=== PATIENT | female | born 1985 | race Caucasian/White ===

== ENCOUNTER → 2016-09-25 | Day surgery (SDC) | payer OTHER ==
[2016-09-16 11:22] VITALS: Ht 154.9 cm; Wt 57.7 kg
--- NOTE | 2016-09-24 11:39 | History and Physical: Surg Cnt ---
History & Physical Date Sep 24, 2016. Chief Complaint sinus infections History of Present Illness The patient is a 31 year old female with complaints of persistent sinusitis x 3 months, previous surgery in [place] Past Medical/Surgical History Medical Problems: (1) Uterine contractins (2) Uterine contractions Additional History Hepatic Disease: No Endocrine Disorder: No Kidney Disease: No Hypertension: No Heart Disease: No Bleeding Tendencies: No Infectious Diseases: No Allergies Coded Allergies: Vancomycin (Verified Allergy, Intermediate, RED FACE, ITCHY, SWELLING, 01/23) Penicillins (Verified Allergy, Mild, HIVES, 09/16/16) Sulfa Antibiotics (Verified Allergy, Mild, "SULFA DRUGS": HIVES, 09/16/16) Home Medications Scheduled Cholecalciferol (Vitamin D3), 1 TAB PO QAM Etonogestrel/Ethinyl Estradiol (Nuvaring), 1 EA VAGRING MONTHLY Interferon Beta-1B (Betaseron), 1 DOSE IM Q2D Levothyroxine Sodium (Synthroid), 88 MCG PO QAM Multivit/Min/Iron/Fol Ac/Pren ( Vitamin), 1 TABLET PO QAM Zinc Gluconate (Zinc), 50 MG PO QAM Physical Examination Skin: warm/dry, no rash Eyes: normal inspection, EOMI, sclerae normal ENT: normal ENT inspection, pharynx normal Head: normocephalic, atraumatic Neck: supple, no adenopathy, trachea midline Respiratory/Chest: lungs clear, normal breath sounds, no respiratory distress Cardiovascular: regular rate, rhythm, no edema, no murmur Abdomen / GI: normal bowel sounds, non tender Back: normal inspection Extremities: normal inspection, normal range of motion Neurologic/Psych: no motor/sensory deficits, alert, normal reflexes, oriented x 3 Diagnosis chronic sinusitis, septal dev. to right Plan of Treatment endoscopic sinus surgery, septoplasty
[~2016-09-25] VITALS: Ht 154.9 cm; Wt 57.7 kg
[~2016-09-25] MED LIST: ATROPINE SULFATE 0.1 MG/ML 5ML SYR IV PRN; BACITRACIN OINT 15 GM TUBE ONE; CEFAZOLIN 1000MG/55 ML D5W IV SCH; CHOL1000 PO; DEXAMETHASONE SOD INJ 4 MG/ML VIAL ONE; ETONMIS VAGRING; EpHEDrine SULFATE INJ 50 MG/ML AMP IV PRN; EpINEphrine INJ 1MG/ML AMP 1 MG/ML AMP ONE; FENTANYL CITRATE INJ 50 MCG/1 ML 2 ML VIAL IV PRN; FENTANYL CITRATE INJ 50 MCG/1 ML 2 ML VIAL ONE; GELATIN SPONGE 12-7MM ONE; INTE0.3I2 IM; LACTATED RINGER'S 1000ML 1,000 ML IV SCH; LEVO88TA PO; LIDO 2%/EPINEPHRINE 1:100000 20 ML VIAL INFIL ONE; LIDOCAINE 4% MPF SOAK 5 ML = 1 DOSE TOP ONE; LIDOCAINE HCL 2% 2 ML VIAL (20MG/ML) ONE; MIDAZOLAM HCL 1 MG/ML 2ML VIAL ONE; ONDANSETRON INJ 2 MG/ML 2 ML VIAL IV PRN; ONDANSETRON INJ 2 MG/ML 2 ML VIAL ONE; OXYC-57 PO; OXYCODONE/ACETAMINOPHEN 5-325 TAB PO PRN; PRENTAB26 PO; PROMETHAZINE HCL INJ 6.25 MG in SODIUM CHLORIDE 0.9% 50ML 50 ML IV PRN; PROPOFOL IV EMULSION 10 MG/ML 20 ML VIAL IV ONE; SODIUM CHLORIDE 0.9% 1000ML 1,000 ML IV SCH; ZINC1TAB PO
--- NOTE | 2016-09-25 07:55 | History & Physical Bridge Note ---
H&P Re-Evaluation Bridge Note: I have examined the patient, reviewed the History & Physical and in the interval since the performance of the History & Physical I have noted the following changes of clinical significance: No changes noted
--- NOTE | 2016-09-25 07:57 | Discharge Instructions-SurgCtr ---
Discharge Instructions Date of Service Sep 25, 2016. Visit Reason for Visit: Chronic Sinusitis Septal Deviation Discharge Discharge Diagnosis / Problem: same Discharge Goals Goal(s): Improve function Activity Recommendations Activity Limitations: per Instructions/Follow-up section Anesthesia . Post Anesthesia Instructions: If you have had General Anesthesia or IV Sedation: * Do not drive today. * Resume driving when surgeon permits. * Do not make important decisions or sign legal documents today. * Call surgeon for: 1. Temperature elevations greater than 101 degrees F. 2. Uncontrollable pain. 3. Excessive bleeding. 4. Persistent nausea and vomiting. 5. Medication intolerance (nausea, vomiting or rash). * For nausea and vomiting use only clear liquids such as: tea, soda, bouillon until nausea subsides, then gradually increase diet as tolerated. * If you have any concerns or questions, call your surgeon's office. If physician is unavailable and it is an emergency, call 911 or go to the nearest emergency room. . Instructions / Follow-Up Instructions / Follow-Up ACTIVITY RECOMMENDATIONS: * Being up and around is good, but no strenuous activity, heavy lifting or physical exertion for one week. * Keep your head elevated 30 degrees when lying down or sleeping. * Do not blow your nose for 48 hours, sniff back instead. * Avoid hot showers. OVER THE COUNTER MEDICATIONS: * You may use Tylenol * Avoid aspirin or aspirin containing products, e.g. as they may increase bleeding. SPECIAL CARE INSTRUCTIONS: * Expect to have bloody drainage from your nose and/or down your throat for one to three days. Change drip pad as needed. * Begin irrigating your nose with saline solution today, at least six to ten times per day and sniff back to help remove old clots or crust. * You may experience nasal and facial congestion, pain and pressure, this is normal. * Please call with any significant and/or progressive pain, redness, swelling around the eyes, visual changes, fever of 101.5 degrees F, active bleeding or any problems or concerns. * If active bleeding occurs, spray the nose three times at one minute intervals with Afrin spray and call or cell phone: . If unable to reach the doctor, go to the nearest Emergency Department. Special Diet: * Avoid extremely hot fluids. FOLLOW UP VISIT: Follow-up Visit with Dr. Zhao If not already scheduled, please call to schedule. Diet Recommendations Home Diet: no limitations Pending Studies Studies pending at discharge: no Medical Emergencies . Who to Call and When: Medical Emergencies: If at any time you feel your situation is an emergency, please call 911 immediately. . Non-Emergent Contact Non-Emergency issues call your: Primary Care Provider . . "Provider Documentation" section prepared by Elise Zhao. . [place] Drug Monitoring Program Search Results: no issues identified
--- NOTE | 2016-09-25 10:53 | [facility] Operative Report ---
Operative Report Operative Date Sep 25, 2016. Pre-Operative Diagnosis Chronic Sinusitis , Septal Deviation Post-Operative Diagnosis Same Procedure(s) Performed Right and Left Frontal, Total Ethmoid and Right and Left Maxillary Sinusectomy Surgeon Dr. 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 Septal Bone and Cartilage Anesthesia Gen. LMA Complication(s) None Disposition Recovery Room / PACU Implants Propel many stents Indications 31-year-old who underwent endoscopic sinus surgery in [place] last year continues to have significant headaches and infection of increasing severity Description of Procedure Procedure the patient was brought to the operating room and placed in the supine position. She was prepped and draped in the usual sterile manner. The Spring[employer] device was calibrated and used for the entire procedure. The nose was decongested using topical cottonoids with a solution of 4 mL of 4% Xylocaine mixed with 1 mL of adrenaline. Injection of 2% Xylocaine with 1-100,000 strength epinephrine was also used. The left nasal frontal duct was cannulated with the guidewire with [employer] computer guidance and dilated using the 6 mm balloon. The guidewire was left in place as a marker for frontal sinusotomy. The shaver was couple with the [employer] device to remove the anterior wall and then the posterior wall of the Ashley nasi cell following the guidewire superiorly into the nasal frontal duct leaving the mucosa in the nasal frontal duct intact. At this point total ethmoidectomy was performed with the shaver removing a significant amount of adhesions scar tissue and polyps and also significant amount of osteitis going through the residual ground lamella into the posterior ethmoid air cells going into the posterior most ethmoid air cells identifying the skull base superiorly and lamina papyracea bilaterally following the structures anteriorly to exonerate all the posterior and then all the anterior ethmoid air cells up to the previously dilated nasal frontal duct. The maxillary ostia had a missed ostia syndrome. This was opened using the seeker and the shaver. The left frontal sinusotomy total ethmoidectomy and maxillary sinus antrostomy were performed in a similar manner. Propel mini stents were placed into the nasal frontal duct. Endoscopic septoplasty was performed removing a large bony cartilaginous spur projecting to the right the incision was made over the spur using the 15 blade. Superior and inferior tunnels were elevated along with bilateral posterior tunnels. The bony cartilaginous spurs were removed using the 15 blade the caudal dissector and the Chayo forceps. The septum was packed with a single piece of Gelfoam on the right side. The patient tolerated procedure well was taken recovery area in satisfactory condition thank you I attest to the content of the Intraoperative Record and any orders documented therein. Any exceptions are noted below.
--- NOTE | 2016-09-25 11:09 | Anesthesia Progress Nt - [facility] ---
Anesthesia Post Op Note Date & Time Sep 25, 2016 at 11:09 Vital Signs Pain Intensity: 4 Vital Signs Past 12 Hours Date Time Temp Pulse Resp B/P (MAP) Pulse Ox O2 Delivery O2 Flow Rate FiO2 09/25/16 10:31 36.5 101 12 145/90 98 Humidified Oxygen 6 Mask 09/25/16 06:53 36.9 93 16 138/84 (102) 99 Room Air Notes Mental Status: alert / awake / arousable, participated in evaluation Pt Amnestic to Procedure: Yes Nausea / Vomiting: adequately controlled Pain: adequately controlled Airway Patency, RR, SpO2: stable & adequate BP & HR: stable & adequate Hydration State: stable & adequate Anesthetic Complications: no major complications apparent
[2016-09-25 11:17] VITALS: TEMP 36.7
[2016-09-25 11:33] VITALS: BP 140/90; PULSE 90; O2SAT 97
== END | disposition home or self-care (01) ==
LOC: X.SURG 06:44
PROVIDERS: ATTEND Otolaryngology
DX: J32.9 Chronic sinusitis, unspecified (principal); J34.2 Deviated nasal septum; J33.8 Other polyp of sinus; J34.89 Other specified disorders of nose and nasal sinuses; Z79.899 Other long term (current) drug therapy